=== PATIENT | male | born 1965 | race Caucasian/White ===

== ENCOUNTER 2024-01-28 12:07 | Emergency (ER) | payer OTHER, SELFPAY ==
[2024-01-28 12:09] VITALS: BP 159/95
[2024-01-28 12:27] LABS: Urine Albumin Negative (Neg - Trace); Urine Bilirubin 1+ (Negative); Urine Character Clear (Clear); Urine Color Yellow; Urine Glucose Negative (Negative); Urine Ketone Trace (Negative); Urine Leukocyte Trace (Negative); Urine Nitrite Negative (Negative); Urine Occult Blood Negative (Negative); Urine Specific Gravity 1.015 (<1.030); Urine Urobilinogen 1+ (Neg - 1+)
[2024-01-28 12:37] LABS: Urine Mucus Few; Urine Squamous Cell 0-2 /LPF (Few); Urine White Cell 0-2 /HPF (0-5)
--- NOTE | 2024-01-28 13:23 | ED.GENMED ---
History of Present Illness
General
Chief Complaint: Male Genito-Urinary Symptoms
Time Seen by Provider: 01/28/24 12:29
History of Present Illness
History of Present Illness:
58-year-old male presents the emergency department for evaluation of left testicular pain and swelling. He states he has had mild to moderate pain for the past 2 weeks but after having intercourse yesterday developed significant amount of swelling
and pain. Denies any fevers or chills. No dysuria or penile discharge. He is monogamous with his and denies concern for STI
Past History
Past History
ED Past Medical History: Asthma, Other (low back pain) and Other (Chronic pain syndrome, morbid obesity)
ED Past Surgical History: None
Social History
Tobacco: Smoker (Quit smoking early May 2017 in preparation for gastric bypass.)
Alcohol: None
Drug: None
Personal:
Living: with family
Employment: Employed ([employer] Operator)
Family History
Family History: Hypertension
Review of Systems
Review of Systems
Allergies reviewed?: Yes
All Other Systems: ROS reviewed and negative except as documented in HPI and ROS
Phy Exam
Physical Exam
Physical Exam:
GEN: Well appearing, NAD, WDWN
HEENT: Oral mucosa moist, no scleral icterus
Cardiac: Regular rate
Lung: No respiratory distress, no tachypnea
: Moderate swelling to the left hemiscrotum with palpable epididymal swelling and tenderness, no inguinal hernia
MSK: No gross deformity or injuries
Skin: Good color, no pallor or jaundice, no rashes
Neuro: AO x3, moves all extremities freely
Psych: Calm, cooperative
Course
Orders/Labs/Results
Orders:
Orders
01/28/24 12:08
US Scrotum Urgent
Comment:
Reason For Exam: left testicular pain/swelling
01/28/24 12:13
Urinalysis Reflex To Culture Urgent
Date Specimen was Collected: 01/28/24
Time Specimen was Collected: 12:10
Urine Microscopic Reflex Cult Urgent
Abnormal Lab Results
01/28/24
12:13
Urine Ketones Trace A
(Negative)
Urine Bilirubin 1+ A
(Negative)
Leukocyte Esterase Rfl Trace A
(Negative)
Urine RBC 3-6 A /HPF
(0-2)
Vital Signs
Initial and Last Documented VS:
Initial Vital Signs
Temp Pulse Resp BP Pulse Ox
99.1 F 82 17 159/95 99
01/28/24 12:01/28/24 12:01/28/24 12:01/28/24 12:01/28/24 12:09
Last Documented Vital Signs
Temp Pulse Resp BP Pulse Ox
99.1 F 82 17 159/95 99
01/28/24 12:09 01/28/24 12:09 01/28/24 12:01/28/24 12:01/28/24 12:09
MDM/Problems Addressed
MDM/Problems Addressed:
Clinical exam and ultrasound consistent with epididymitis. Although this may be acutely inflammatory given the persistence of pain for the past several weeks we will treat with empiric antibiotics
*Critical Care Note
Total Time (30-74mins, 75-104mins- exclusive of procedures): Not Applicable
ED Attending Note
-
Portions of this chart may have been created with voice recognition software.� Occasional wrong word or��sound alike� substitutions may have occurred due to the inherent limitations of voice recognition software.
Discharge Plan
Departure
Patient Disposition: Home (Routine Discharge)
Date of Disposition: 01/28/24
Time of Disposition: 13:23
Patient with high blood pressure during this ER visit?: No
Discharge Problem:
Left epididymitis
Instructions: Epididymitis and Orchitis
Prescriptions:
New
sulfamethoxazole-trimethoprim [Bactrim DS] 800-160 mg tablet
1 tab PO BID Qty: 20 0RF
No Action
lorazepam [Ativan] 1 MG tablet
1 mg PO TIDPRN PRN (Reason: anxiety) Qty: 10 0RF
prednisone 50 MG tablet
50 mg PO DAILY Qty: 4 0RF
Interventions
Interventions:
*Risk Screen - Suicide Last Done: 01/28/24 12:10
*General Assessment Last Done: 01/28/24 12:10
*Neglect/Abuse Screening Last Done: 01/28/24 12:10
*ED COVID-19 Vaccine History Last Done: 01/28/24 12:10
*Nursing Disposition Last Done: 01/28/24 13:45
ED-Male Genitourinary Assessment Last Done: 01/28/24 12:30
Discharge Date and Time
Discharge Date/Time: 01/28/24 14:00
Print Language: MONGOLIAN
== END 2024-01-28 14:00 | disposition home or self-care (01) ==
LOC: EMR 12:07
PROVIDERS: Emergency Medicine; EMERGENCY PHYSICIAN Emergency Medicine; FAMILY PHYSICIAN Internal Medicine
DX: N45.1 Epididymitis (principal); Z87.891 Personal history of nicotine dependence
CPT/HCPCS: 99284; 76870; 81003; 81015; 93976